=== PATIENT | female | born 1970 | race Caucasian/White ===

== ENCOUNTER → 2023-12-09 13:13 | Outpatient (REF) | payer OTHER, SELFPAY | LOC: HWWDC 13:13 | PROVIDERS: ATTENDING PHYSICIAN Obstetrics & Gynecology Gynecology; FAMILY PHYSICIAN Nurse Practitioner Adult Health | DX: Z12.31 Encounter for screening mammogram for malignant neoplasm of breast (principal) | CPT/HCPCS: 77063; 77067 ==

== ENCOUNTER → 2025-01-11 15:25 | Outpatient (REF) | payer OTHER, SELFPAY | LOC: WDC 15:25 | PROVIDERS: ATTENDING PHYSICIAN Obstetrics & Gynecology Gynecology; FAMILY PHYSICIAN Nurse Practitioner Adult Health | DX: Z12.31 Encounter for screening mammogram for malignant neoplasm of breast (principal) | CPT/HCPCS: 77063; 77067 ==

== ENCOUNTER 2025-03-26 09:35 | Day surgery (SDC) | payer OTHER, SELFPAY ==
[2025-03-26] VITALS (11 sets, daily range): BP systolic 116–169; BP diastolic 89–103; BMI 29.2
[2025-03-26 09:57] LABS: Hematocrit 37.6 % (37.0-47.0); Hemoglobin 12.8 g/dL (12.0-16.0); Mean Corp Hgb Conc. 34.0 g/dL (33.0-37.0); Mean Corpuscular Volume 87.4 fL (81.0-99.0); Platelet Count 236 10^3/uL (130-400); Red Cell Dist. Width 13.5 % (11.5-14.5)
[2025-03-26 10:16] LABS: Blood Urea Nitrogen 15 mg/dl (7-17); Calcium 9.4 mg/dl (8.4-10.2); Chloride 104 mmol/L (98-107); Estimated Creatinine Clearance 72 ml/min; Glucose 92 mg/dl (70-99); Potassium 4.1 mmol/L (3.5-5.1); Sodium 140 mmol/L (135-145); eGFR > 60.00
[2025-03-26 10:25] LABS: Carbon Dioxide 31 mmol/L (22-30)
[2025-03-26] MEDS: VANCOCIN 530 MG IV (11:14)
--- NOTE | 2025-03-26 12:33 | ITS.CL.PACE ---
Service Station Cashier - Pacemaker Implant
Pacemaker Implant
Procedure Report:
PACEMAKER GENERATOR CHANGE
Date of Procedure: March 26, 2025
Primary Care Provider: NOMAN Amor
PROCEDURES:
1. Removal of dual chamber PPM generator at [facility]
2. Implant of new omar chamber PPM generator
INDICATION FOR PROCEDURE:
1. PPM generator at [facility]
HISTORY:
History of symptomatic sick sinus syndrome treated with permanent pacemaker in the past. Permanent pacemaker now at [facility].
'Time out' called and confirmed
Antibiotic: Ancef, intravenously
Sedation/anesthesia: Via the anesthesia department
The patient was prepped and draped in sterile fashion. Lidocaine with epi was used for local anesthesia. An incision was made along the previous incision and the device and leads were carefully dissected from the pocket. Hemostasis was obtained
with electrocautery. The leads were from the device header and tested using an external analyzer. The pocket was liberally irrigated with antibiotic solution. Once testing (see below) showed adequate and stable function, the leads were
connected to the generator header and the leads and generator were placed within the pocket. The pocket was closed in the typical fashion.
EXPLANTED PPM GENERATOR:
Medtronic Adapta A. [id number], serial number [id number]
IMPLANTED PPM GENERATOR:
Medtronic [id number], SN [id number]
RETAINED LEADS:
Existing RA Lead: Medtronic 5076, serial number PJ [id number]
Existing RV Lead: Medtronic 5076, serial number [id number]
DEVICE TESTING:
Sensing: RA 1.3 mV, RV 12 point mV
Capture: RA 1 V @ 0.4ms, RV 1.5 V @ 0.4ms
Ohms: RA 285, RV 399
FINAL PROGRAMMING
Hitesh Pacing: MVP mode 40 ppm
Rate drop hysteresis programmed on
COMPLICATIONS:
None
CONCLUSIONS:
1. Successful explant of dual chamber permanent pacemaker
2. Successful implant of dual chamber permanent pacemaker
*Note, patient developed atrial fibrillation during generator change. She was in sinus rhythm to begin the case and while changing the generator she developed atrial fibrillation.
Interrogation of her explanted device demonstrated no documented episodes of atrial fibrillation.
Cardioversion restored sinus rhythm.
Uncertain whether this is a manifestation from anesthesia or if she should be expected to have clinical recurrences of atrial fibrillation.
CHADS score is 0, Non-Gender CHADSVASc = 0. Will not initiate anticoagulation at this point.
I am programming on atrial fibrillation alert for 6-hour duration.
RECOMMENDATIONS:
1. In-Office wound check in 7-10 days.
Copy to:
Primary Care Provider: NOMAN Amor
== END 2025-03-26 14:30 | disposition home or self-care (01) ==
LOC: CATH 09:35
PROVIDERS: ATTENDING PHYSICIAN Internal Medicine Cardiovascular Disease; FAMILY PHYSICIAN Nurse Practitioner Adult Health
DX: Z45.010 Encounter for checking and testing of cardiac pacemaker pulse generator [battery] (principal); I49.5 Sick sinus syndrome; R55 Syncope and collapse; E78.5 Hyperlipidemia, unspecified; Z79.890 Hormone replacement therapy; Z79.899 Other long term (current) drug therapy; Q60.0 Renal agenesis, unilateral; E16.2 Hypoglycemia, unspecified; I48.91 Unspecified atrial fibrillation
CPT/HCPCS: 33228; 80048; 85027; C1785

== ENCOUNTER → 2025-04-05 12:10 | Outpatient (REF) | payer OTHER, SELFPAY | LOC: HWRCS 12:10 | PROVIDERS: ATTENDING PHYSICIAN Internal Medicine Cardiovascular Disease; FAMILY PHYSICIAN Nurse Practitioner Adult Health | DX: I49.5 Sick sinus syndrome (principal); R07.89 Other chest pain | CPT/HCPCS: 78452; 93017; A9500; J2785 ==